=== PATIENT | male | born 1980 | race Caucasian/White ===

== ENCOUNTER 2016-05-27 16:22 | Observation (INO) ==
[2016-05-27] MEDS ORDERED: 0.9 % Sodium Chloride 500 ML IVC ONE (16:56)
[2016-05-27] MEDS ORDERED: *HR* LORazepam 2 MG/ML VIAL IVP ONE ×2 (16:57→18:07)
[2016-05-27] MEDS ORDERED: MethylPREDNISolone 40 MG/ML VIAL IVP ONE (16:59)
--- NOTE | 2016-05-27 17:18 | Emergency Department Note ---
Overdose - [facility] Narrative Medical decision making narrative: Methamphetamine intoxication. He was given 1 mg of Ativan IV when he arrived here in the emergency department. He was able to rest comfortably and fall asleep for a short time after this was dosed. He woke up to be much more pleasant alert oriented 3 in no distress respiratory or otherwise. He is not complaining of any shortness of breath chest pain itching nausea. Rhabdomyolysis. He is not having any muscle pain but it would be prudent to take precautions and give him IV fluids to prevent any electrolyte or renal issues. I provided him to be observed here at [facility] for those reasons. He voiced understanding and agreement. I spoke with the covering hospitalist and presented the case. He accepted admission. Mr. Preston is receiving IV hydration and resting comfortably often falling asleep while awaiting transfer to the floor. He received 3 L here in the emergency department and will run at 500 mL an hour on admission. There is no current evidence of renal dysfunction or electrolyte imbalance. We will withhold any potentially nephrotoxic medications on admission. He is in no visible distress respiratory or otherwise. I have asked the floor nurse to check urine output every 2 hours and to let me know if he is putting out any less than 400 mL in this time. Elevated transaminases. He does have known active hepatitis C. We will not give any Tylenol as needed on admission. - Lab Data Lab results reviewed: Yes I reviewed the patient's lab results. Result diagrams: 05/27/16 17:40 05/27/16 17:40 Lab Results 05/27/16 05/27/16 05/27/16 Range/Units 17:40 17:40 17:40 WBC 9.5 (4.3-11.1) K/mcL RBC 4.66 (4.19-5.50) M/mcL Hgb 15.1 (12.9-16.9) g/dL Hct 43.6 (37.5-50.1) % MCV 93.6 (83.0-100.0) fL MCH 32.4 (28.0-33.3) pg MCHC 34.6 (31.6-35.5) g/dL RDW 12.6 (11.5-14.5) % Plt Count 297 (140-400) K/mcL MPV 9.4 (9.4-12.4) fL Immature Gran % 0.4 (0-4) % Seg Neutrophils % 71.2 % Lymphocytes % 16.4 % Monocytes % 11.3 % Eosinophils % 0.4 % Basophils % 0.3 % Neutrophils # 6.8 (1.6-8.9) K/mcL Lymphocytes # 1.6 (0.6-4.6) K/mcL Monocytes # 1.1 (0.0-1.3) K/mcL Eosinophils # 0.0 (0.0-0.6) K/mcL Basophils # 0.0 (0.0-0.2) K/mcL Sodium (136-145) mEq/L Potassium (3.5-4.5) mEq/L Chloride (98-109) mEq/L Carbon Dioxide (19-29) mEq/L BUN (8-26) mg/dL Creatinine (0.72-1.25) mg/dL Est GFR ( Amer) (> 60) Est GFR (Non-Af Amer) (> 60) BUN/Creatinine Ratio (6-26) Glucose (70-99) mg/dL Calculated Osmolality (280-300) Calcium (8.6-10.8) mg/dL Phosphorus (2.3-4.7) mg/dL Total Bilirubin (0.2-1.2) mg/dL AST (5-34) Units/L ALT (0-55) Units/L Alkaline Phosphatase (38-126) Units/L Creatine Kinase (30-200) Units/L Troponin I 0.00 (0-0.03) ng/mL Serum Total Protein (6.0-8.3) g/dL Albumin (3.5-5.0) g/dL Globulin (2.4-3.5) g/dL Albumin/Globulin Ratio (1.1-2.2) Salicylates < 5.0 L (15-30) mg/dL Acetaminophen < 5.0 L (10-30) mcg/mL Ethyl Alcohol < 10 (0-10) mg/dL 05/27/16 05/27/16 05/27/16 Range/Units 17:40 17:40 17:40 WBC (4.3-11.1) K/mcL RBC (4.19-5.50) M/mcL Hgb (12.9-16.9) g/dL Hct (37.5-50.1) % MCV (83.0-100.0) fL MCH (28.0-33.3) pg MCHC (31.6-35.5) g/dL RDW (11.5-14.5) % Plt Count (140-400) K/mcL MPV (9.4-12.4) fL Immature Gran % (0-4) % Seg Neutrophils % % Lymphocytes % % Monocytes % % Eosinophils % % Basophils % % Neutrophils # (1.6-8.9) K/mcL Lymphocytes # (0.6-4.6) K/mcL Monocytes # (0.0-1.3) K/mcL Eosinophils # (0.0-0.6) K/mcL Basophils # (0.0-0.2) K/mcL Sodium 140 (136-145) mEq/L Potassium 3.6 (3.5-4.5) mEq/L Chloride 107 (98-109) mEq/L Carbon Dioxide 19 (19-29) mEq/L BUN 14 (8-26) mg/dL Creatinine 1.08 (0.72-1.25) mg/dL Est GFR ( Amer) > 60 (> 60) Est GFR (Non-Af Amer) > 60 (> 60) BUN/Creatinine Ratio 13 (6-26) Glucose 89 (70-99) mg/dL Calculated Osmolality 290 (280-300) Calcium 9.0 (8.6-10.8) mg/dL Phosphorus 2.9 (2.3-4.7) mg/dL Total Bilirubin 1.0 (0.2-1.2) mg/dL AST 100 H (5-34) Units/L ALT 160 H (0-55) Units/L Alkaline Phosphatase 77 (38-126) Units/L Creatine Kinase 1367 H (30-200) Units/L Troponin I (0-0.03) ng/mL Serum Total Protein 6.9 (6.0-8.3) g/dL Albumin 3.8 (3.5-5.0) g/dL Globulin 3.1 (2.4-3.5) g/dL Albumin/Globulin Ratio 1.2 (1.1-2.2) Salicylates (15-30) mg/dL Acetaminophen (10-30) mcg/mL Ethyl Alcohol (0-10) mg/dL 05/27/16 Range/Units 20:35 WBC (4.3-11.1) K/mcL RBC (4.19-5.50) M/mcL Hgb (12.9-16.9) g/dL Hct (37.5-50.1) % MCV (83.0-100.0) fL MCH (28.0-33.3) pg MCHC (31.6-35.5) g/dL RDW (11.5-14.5) % Plt Count (140-400) K/mcL MPV (9.4-12.4) fL Immature Gran % (0-4) % Seg Neutrophils % % Lymphocytes % % Monocytes % % Eosinophils % % Basophils % % Neutrophils # (1.6-8.9) K/mcL Lymphocytes # (0.6-4.6) K/mcL Monocytes # (0.0-1.3) K/mcL Eosinophils # (0.0-0.6) K/mcL Basophils # (0.0-0.2) K/mcL Sodium (136-145) mEq/L Potassium (3.5-4.5) mEq/L Chloride (98-109) mEq/L Carbon Dioxide (19-29) mEq/L BUN (8-26) mg/dL Creatinine (0.72-1.25) mg/dL Est GFR ( Amer) (> 60) Est GFR (Non-Af Amer) (> 60) BUN/Creatinine Ratio (6-26) Glucose (70-99) mg/dL Calculated Osmolality (280-300) Calcium (8.6-10.8) mg/dL Phosphorus (2.3-4.7) mg/dL Total Bilirubin (0.2-1.2) mg/dL AST (5-34) Units/L ALT (0-55) Units/L Alkaline Phosphatase (38-126) Units/L Creatine Kinase (30-200) Units/L Troponin I 0.00 (0-0.03) ng/mL Serum Total Protein (6.0-8.3) g/dL Albumin (3.5-5.0) g/dL Globulin (2.4-3.5) g/dL Albumin/Globulin Ratio (1.1-2.2) Salicylates (15-30) mg/dL Acetaminophen (10-30) mcg/mL Ethyl Alcohol (0-10) mg/dL - Radiology Data Radiology results reviewed: Yes I reviewed the patient's radiology results. - EKG Data EKG attestation: Yes I reviewed and interpreted this EKG. EKG results narrative: EKG is interpreted by me normal sinus rhythm approximately 90 bpm. T-wave inversion in aVL. No other T-wave abnormalities. No ST elevation or depression. Normal axis. No evidence of hypertrophy. Overdose HPI - General Chief Complaint: ED General Medical Source: patient Limitations: no limitations Nursing Notes Reviewed: Yes Vital Signs Reviewed: Yes - History of Present Illness HPI Narrative: Mr. Preston comes the emergency room tonight after he both snorted and used IV methamphetamine. He tells me that his skin is breaking out in certain places on his face and on his arms. He is compulsively picking at these areas. He also feels like his chest is tightening as well and he is somewhat short of breath. 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 Unfortunately he was unable to maintain his naltrexone shots. 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 He is feeling very guilty and agitated about his resumed use. He denies any other drugs. Pt Subjective Complaint: accidental overdose Onset (ago): Just [employer] - Related Data Home Medications Medication Instructions Recorded Confirmed No Known Home Drugs 05/27/16 05/27/16 Allergies Allergy/AdvReac Type Severity Reaction Status Date / Time Penicillins Allergy Hives Verified 12/22/14 19:18 Constitutional: Denies: fever, chills ENT ED: Denies: throat pain, dysphagia Cardiovascular: Reports: chest pain, palpitations Respiratory: Reports: dyspnea. Denies: cough Gastrointestinal: Denies: nausea, vomiting, diarrhea Musculoskeletal: Denies: back pain, neck pain, myalgia Integumentary: Reports: lesions, pruritus Neurological: Denies: numbness, paresthesias Psychiatric: Reports: anxiety. Denies: suicidal thoughts, homicidal thoughts Endocrine: Denies: fatigue Past Medical History - Past Medical History Medical history: Reports: asthma, hepatitis Psychiatric history: Reports: depression - Social History Smoking Status: Current every day smoker Smokeless Tobacco Status: No (1/2 PPD) Alcohol use: Reports: occasionally Drug use: Reports: opiates, marijuana, methamphetamine Physical Exam - General Limitations: no limitations General appearance: alert, other (He is extremely agitated) - Head Head exam: atraumatic - Eye Eye exam: Present: normal appearance. Absent: periorbital swelling, periorbital tenderness - ENT ENT exam: normal exam, normal oropharynx, mucous membranes moist, TM's normal bilaterally, normal external ear exam - Neck Neck exam: Present: normal inspection. Absent: lymphadenopathy - Respiratory Respiratory exam: Present: normal lung sounds bilaterally, wheezes (Very mild end expiratory wheezes bilaterally symmetrically). Absent: respiratory distress , stridor - Cardiovascular Cardiovascular exam: Present: normal rhythm, tachycardia, normal heart sounds. Absent: systolic murmur, diastolic murmur - Abdominal Exam Abdominal exam: Present: soft, Non-Tender - Extremities Exam Extremities exam: Present: normal inspection, normal capillary refill, other (+ 2 radial pulses bilaterally). Absent: pedal edema - Neurological Exam Neurological exam: Present: alert, oriented X3 - Psychiatric Psychiatric exam: Present: agitated, anxious - Skin Skin exam: Present: other (Left cheek there is a fairly well-circumscribed area of edema and erythema slightly raised approximately 2 cm. There is a dried lesion approximately 1 x 2 cm left fourth head. No exudate on either lesion. Mild pain to palpation. No fluctuance.) Course Vital Signs Temperature 97.0 F L 05/27/16 16:28 Pulse Rate 138 05/27/16 16:28 Respiratory Rate 30 05/27/16 16:28 Blood Pressure 167/84 05/27/16 16:28 O2 Sat by Pulse Oximetry 98 05/27/16 16:28 Temperature 97.0 F L 05/27/16 16:28 Pulse Rate 89 05/27/16 22:12 Respiratory Rate 12 05/27/16 22:12 Blood Pressure 125/78 05/27/16 22:12 O2 Sat by Pulse Oximetry 100 05/27/16 22:12 Oxygen Delivery Oxygen Delivery Room Air Disposition Clinical Impression: Rhabdomyolysis Disposition: Admitted As Inpatient Condition: Fair Time of Disposition: 20:00
[2016-05-27 18:01] LABS: Basophils % 0.3 %; Eosinophils % 0.4 %; Hematocrit 43.6 % (37.5-50.1); Hemoglobin 15.1 g/dL (12.9-16.9); Immature Granulocytes % 0.4 % (0-4); Lymphocytes # 1.6 K/mcL (0.6-4.6); Lymphocytes % 16.4 %; Mean Corpuscular HGB Conc 34.6 g/dL (31.6-35.5); Mean Corpuscular Hemoglobin 32.4 pg (28.0-33.3); Mean Corpuscular Volume 93.6 fL (83.0-100.0); Mean Platelet Volume 9.4 fL (9.4-12.4); Monocytes # 1.1 K/mcL (0.0-1.3); Monocytes % 11.3 %; Neutrophils # 6.8 K/mcL (1.6-8.9); Platelet Count 297 K/mcL (140-400); Red Blood Count 4.66 M/mcL (4.19-5.50); Red Cell Distribution Width 12.6 % (11.5-14.5); Segmented Neutrophils % 71.2 %
[2016-05-27] MEDS ORDERED: Albuterol 2.5 MG/3 ML NEBULIZER IH ONE (18:05)
[2016-05-27 18:44] LABS: Ethanol < 10 mg/dL (0-10); Salicylate < 5.0 mg/dL (15-30)
[2016-05-27] MEDS ORDERED: 0.9 % Sodium Chloride 1,000 ML IVC ONE ×2 (18:47→20:30)
[2016-05-27 19:01] LABS: Acetaminophen < 5.0 mcg/mL (10-30)
[2016-05-27 19:29] LABS: Alanine Aminotransferase 160 Units/L (0-55); Albumin 3.8 g/dL (3.5-5.0); Albumin/Globulin Ratio 1.2 (1.1-2.2); Alkaline Phosphatase 77 Units/L (38-126); Aspartate Amino Transferase 100 Units/L (5-34); BUN/Creatinine Ratio 13 (6-26); Blood Urea Nitrogen 14 mg/dL (8-26); Carbon Dioxide 19 mEq/L (19-29); Chloride 107 mEq/L (98-109); Globulin 3.1 g/dL (2.4-3.5); Glucose 89 mg/dL (70-99); Osmolality,Calculated 290 (280-300); Potassium 3.6 mEq/L (3.5-4.5); Sodium 140 mEq/L (136-145); Total Protein 6.9 g/dL (6.0-8.3); eGFR For African Americans > 60 (> 60); eGFR For Non-African Americans > 60 (> 60)
[2016-05-27] MEDS ORDERED: Ondansetron 4 MG/2 ML VIAL IVP PRN (20:25)
[2016-05-27] MEDS ORDERED: Naloxone 0.4 MG/ML INJ IVP PRN (20:25)
[2016-05-27 22:50] VITALS: BP 119/78
[2016-05-27] MEDS: 0.9 % Sodium Chloride 1,000 ML IVC SCH ×2 (23:28→23:30)
[2016-05-28 01:23] LABS: Bilirubin,Urine Negative (Negative); Blood,Urine Negative (Negative); Clarity,Urine Slightly Cloudy (Clear); Color,Urine Yellow (Yellow); Glucose,Urine (UA) Normal (Normal); Ketones,Urine 40 mg/dL (Negative); Leukocyte Esterase,Urine Negative (Negative); Nitrite,Urine Negative (Negative); Protein,Urine Negative (Neg-Trace); Specific Gravity,Urine 1.025 (1.010-1.025)
[2016-05-28 01:32] LABS: Amphetamine Screen,Urine Positive ng/mL (Cutoff=1000); Barbiturate Screen,Urine Negative ng/mL (Cutoff=200); Benzodiazepines Screen,Urine Positive ng/mL (Cutoff=200); Cannabinoid Screen,Urine Positive ng/mL (Cutoff = 50); Cocaine Screen,Urine Negative ng/mL (Cutoff= 300); Opiate Screen,Urine Negative ng/mL (Cutoff=300); Phencyclidine Screen,Urine Negative ng/mL (Cutoff=25)
[2016-05-28] MEDS: 0.9 % Sodium Chloride 1,000 ML IVC SCH (01:40)
== END 2016-05-28 04:00 | disposition left against medical advice (07) ==
LOC: INPGRE 16:22 → EMEROOGRE 16:22 → INPGRE 22:33
PROVIDERS: ADMIT Internal Medicine; ATTEND Internal Medicine